=== PATIENT | female | born 1990 | race Caucasian/White ===

== ENCOUNTER 2016-12-31 15:16 | Emergency (ER) | payer OTHER ==
[2016-12-31 15:29] VITALS: TEMP 98.2; BMI 24.2
--- NOTE | 2016-12-31 15:33 | PDOC ---
Rapid Medical Evaluation Chief Complaint: Pain, Acute Time Seen by Provider: 12/31/16 15:24 Medical Evaluation: Allergies Allergy/AdvReac Type Severity Reaction Status Date / Time No Known Allergies Allergy Verified 12/31/16 15:24 Vital Signs Temp Pulse Resp BP Pulse Ox 98.2 F 91 H 19 121/62 97 12/31/16 15:24 12/31/16 15:24 12/31/16 15:24 12/31/16 15:24 12/31/16 15:24 12/31/16 15:31 I have performed a brief in-person evaluation of this patient. The patient presents with a chief complaint of: vaginal bleeding associated with abd cramping x 3 days, h/o unprotected sexual intercourse Pertinent physical exam findings:soft abd, + mild distress I have ordered the following: cbc, cmp, type and screen, ucg, beta-hcg The patient will proceed to the ED for further evaluation.
[2016-12-31 16:00] LABS: BASOPHIL 0.5 % (0-2.0); EOSINOPHIL 1.6 % (0-4.5); MCH 30.9 pg (25.7-33.7); MCHC 34.8 g/dl (32.0-36.0); MEAN CELL VOLUME 88.8 fl (80-96); MEAN PLT VOLUME 8.6 fl (7.5-11.1); NEUTROPHILS 82.2 % (42.8-82.8); PLATELET COUNT 208 K/MM3 (134-434); RDW 12.5 % (11.6-15.6); WHITE BLOOD COUNT 9.3 K/mm3 (4.0-10.0)
[2016-12-31 16:26] LABS: ALBUMIN 3.6 g/dl (3.4-5.0); ANION GAP 9 (8-16); BILIRUBIN,TOTAL 0.4 mg/dL (0.2-1.0); CALCIUM 8.8 mg/dL (8.5-10.1); CO2 25 mmol/L (21-32); CREATININE 0.7 mg/dL (0.55-1.02); GLUCOSE,RANDOM 97 mg/dL (74-106); SGOT/AST 10 U/L (15-37); SGPT/ALT 16 U/L (12-78); TOT PROT 6.7 g/dl (6.4-8.2)
[2016-12-31 16:27] LABS: ALK PHOS 57 U/L (45-117)
--- NOTE | 2016-12-31 16:49 | PDOC ---
History of Present Illness - General History Source: Patient Exam Limitations: No Limitations <Jatinder Stewart - Last Filed: 12/31/16 20:01> - General History Source: Patient, Family, Old Records Exam Limitations: No Limitations - History of Present Illness Initial Comments: 12/31/16 17:07 The patient is a 26-year-old female with past medical history of asthma who presents to the emergency department for 2 days of vaginal bleeding. Patient reports that her last menstrual period was 6 weeks ago and is unsure if she is . She denies ever being . She reports suprapubic cramping but denies nausea, vomiting, diarrhea. Denies dysuria. Does report vaginal bleeding but denies vaginal discharge. Came into the ED for further evaluation. <Gilmer Leyva - Last Filed: 12/31/16 20:03> - General Chief Complaint: Pain, Acute Stated Complaint: ABD PAIN, VAGINAL BLEEDING Time Seen by Provider: 12/31/16 15:24 Past History - Past Medical History Asthma: Yes - Immunization History Immunization Up to Date: Yes - Psycho/Social/Smoking Cessation Hx Anxiety: No Suicidal Ideation: No Smoking History: Never smoked Hx Alcohol Use: No Drug/Substance Use Hx: No Substance Use Type: None <Jatinder Stewart - Last Filed: 12/31/16 20:01> <Gilmer Leyva - Last Filed: 12/31/16 20:03> - Past Medical History Allergies/Adverse Reactions: Allergies Allergy/AdvReac Type Severity Reaction Status Date / Time No Known Allergies Allergy Verified 12/31/16 15:24 Home Medications: Ambulatory Orders NK [No Known Home Medication] 05/19/14 Review of Systems - Review of Systems Able to Perform ROS?: Yes Comments:: 12/31/16 17:07 GENERAL/CONSTITUTIONAL: No fever or chills. No weakness. HEAD, EYES, EARS, NOSE AND THROAT: No change in vision. No ear pain or discharge. No sore throat. CARDIOVASCULAR: No chest pain or shortness of breath. RESPIRATORY: No cough, wheezing, or hemoptysis. GASTROINTESTINAL: No nausea, vomiting, diarrhea or constipation. GENITOURINARY: No dysuria, frequency, or change in urination. VEST BACKER: (+) suprapubic cramping, vaginal bleeding. MUSCULOSKELETAL: No joint or muscle swelling or pain. No neck or back pain. SKIN: No rash NEUROLOGIC: No headache, vertigo, loss of consciousness, or change in strength/ sensation. ENDOCRINE: No increased thirst. No abnormal weight change. HEMATOLOGIC/LYMPHATIC: No anemia, easy bleeding, or history of blood clots. ALLERGIC/IMMUNOLOGIC: No hives or skin allergy. <Gilmer Leyva - Last Filed: 12/31/16 20:03> *Physical Exam - Vital Signs Last Vital Signs Temp Pulse Resp BP Pulse Ox 98.2 F 91 H 19 121/62 97 12/31/16 15:24 12/31/16 15:24 12/31/16 15:24 12/31/16 15:24 12/31/16 15:24 <Jatinder Stewart - Last Filed: 12/31/16 20:01> - Vital Signs Last Vital Signs Temp Pulse Resp BP Pulse Ox 98.2 F 91 H 19 121/62 97 12/31/16 15:24 12/31/16 15:24 12/31/16 15:24 12/31/16 15:24 12/31/16 15:24 - Physical Exam Comments: 12/31/16 17:07 GENERAL: Awake, alert, and fully oriented, in no acute distress HEAD: No signs of trauma EYES: PERRLA, EOMI, sclera anicteric, conjunctiva clear ENT: Auricles normal inspection, hearing grossly normal, nares patent, oropharynx clear without exudates. Moist mucosa NECK: Normal ROM, supple, no lymphadenopathy, JVD, tenderness, or masses LUNGS: Breath sounds equal, clear to auscultation bilaterally. No wheezes, and no crackles HEART: Regular rate and rhythm, normal S1 and S2, no murmurs, rubs or gallops ABDOMEN: Soft, nontender, normoactive bowel sounds. No guarding, no rebound. No masses EXTREMITIES: Normal range of motion, no edema. No clubbing or cyanosis. No cords, erythema, or tenderness VAGINAL: (+) Suprabpubic tenderness to palpation, blood in vaginal vault, no clotting, no CNT, cervical os closed. NEUROLOGICAL: Cranial nerves II through XII grossly intact. Normal speech, normal gait SKIN: Warm, Dry, normal turgor, no rashes or lesions noted. <Gilmer Leyva - Last Filed: 12/31/16 20:03> ED Treatment Course - LABORATORY CBC & Chemistry Diagram: 12/31/16 15:22 12/31/16 15:22 - ADDITIONAL ORDERS Additional order review: 12/31/16 15:22 RBC 4.54 MCV 88.8 MCHC 34.8 RDW 12.5 MPV 8.6 Neutrophils % 82.2 Lymphocytes % 11.1 Monocytes % 4.6 Eosinophils % 1.6 Basophils % 0.5 <Jatinder Stewart - Last Filed: 12/31/16 20:01> - LABORATORY CBC & Chemistry Diagram: 12/31/16 15:22 12/31/16 15:22 - ADDITIONAL ORDERS Additional order review: Laboratory Results 12/31/16 15:22 Sodium 139 Potassium 4.0 Chloride 105 Carbon Dioxide 25 Anion Gap 9 BUN 10 Creatinine 0.7 Creat Clearance w eGFR > 60 Random Glucose 97 Calcium 8.8 Total Bilirubin 0.4 AST 10 L ALT 16 Alkaline Phosphatase 57 Total Protein 6.7 Albumin 3.6 12/31/16 15:22 RBC 4.54 MCV 88.8 MCHC 34.8 RDW 12.5 MPV 8.6 Neutrophils % 82.2 Lymphocytes % 11.1 Monocytes % 4.6 Eosinophils % 1.6 Basophils % 0.5 - RADIOLOGY Radiograph Interpretation: 12/31/16 20:03 EXAM: US/TRANSVAGINAL ULTRASOUND US Lower abdominal pain and vaginal bleed. Pelvis ultrasound, transvesical and transvaginal Discussion: The uterus is anteverted measuring 7.5 x 4.4 cm. Endometrial stripe measures 4.5 mm in thickness at the fundus which is within normal limits. Right ovary measures 4.8 x 3.1 cm with a simple cyst/dominant follicle measuring 2.3 x 1.4 cm and normal vascular flow. Left ovary measures 3.2 x 2.3 cm with a few small simple cysts/follicles the largest measuring 8 mm and with normal vascular flow. There is no free fluid in the cul-de-sac Impression: Normal-appearing uterus. Normal vascular flow in both ovaries without evidence of torsion. Simple cyst/dominant follicle in the right ovary measuring 2.3 x 1.4 cm a. Reported By: Sheila Gallego MD <Gilmer Leyva - Last Filed: 12/31/16 20:03> Medical Decision Making - Medical Decision Making 12/31/16 16:54 A portion of this note was documented by scribe services under my direction. I have reviewed the details of the note, within reason, and agree with the documentation with the following case summary and management plan written by me. Patient treated in the ED. Nursing notes are reviewed and incorporated into the medical decision-making. Vital signs reviewed. Peripheral IV access obtained by the nurse, laboratory studies are drawn and sent, reviewed and interpreted by myself. Vital Signs Temp Pulse Resp BP Pulse Ox 98.2 F 91 H 19 121/62 97 12/31/16 15:24 12/31/16 15:24 12/31/16 15:24 12/31/16 15:24 12/31/16 15:24 26-year-old female with past medical history of asthma presents to the emergency department for 2 days of vaginal bleeding. Patient reports that her last mentrual period 6 weeks ago and is unsure if she is . She denies ever being . She reports suprapubic cramping but denies nausea, vomiting , diarrhea. Denies dysuria. Does report vaginal bleeding but denies vaginal discharge. Came into the ED for further evaluation. We'll need to check for . If she is positive, we'll need an ectopic versus threatened AB workup. We'll obtain labs including a beta hCG and a type and screen. Likely needs a transvaginal ultrasound. Reassess. 12/31/16 19:52 Ultrasound reviewed. Normal-appearing uterus. Normal vascular flow in both ovaries without evidence of torsion. Simple cyst/dominant follicle in the right ovary measuring 2.3 x 1.4 cm. negative. CBC, BMP 12/31/16 15:22 12/31/16 15:22 CMP Sodium 139 mmol/L (136-145) 12/31/16 15:22 Potassium 4.0 mmol/L (3.5-5.1) 12/31/16 15:22 Chloride 105 mmol/L (98-107) 12/31/16 15:22 Carbon Dioxide 25 mmol/L (21-32) 12/31/16 15:22 Anion Gap 9 (8-16) 12/31/16 15:22 BUN 10 mg/dL (7-18) 12/31/16 15:22 Creatinine 0.7 mg/dL (0.55-1.02) 12/31/16 15:22 Creat Clearance w eGFR > 60 (>60) 12/31/16 15:22 Random Glucose 97 mg/dL (74-106) 12/31/16 15: Calcium 8.8 mg/dL (8.5-10.1) 12/31/16 15: Total Bilirubin 0.4 mg/dL (0.2-1.0) 12/31/16 15: AST 10 U/L (15-37) L 12/31/16 15: ALT 16 U/L (12-78) 12/31/16 15: Alkaline Phosphatase 57 U/L (45-117) 12/31/16 15: Total Protein 6.7 g/dl (6.4-8.2) 12/31/16: Albumin 3.6 g/dl (3.4-5.0) 12/31/16 15: Beta HCG, Quant < 1.0 mIU/ml 12/31/16 15: Urine Test Results Urine Color Straw 12/31/16 17: Urine Appearance Clear 12/31/16 17: Urine pH 6.0 (5.0-8.0) 12/31/16 17:22 Ur Specific [place] 1.008 (1.001-1.035) 12/31/16 17: Urine Protein Negative (NEGATIVE) 12/31/16 17:22 Urine Glucose (UA) Negative (NEGATIVE) 12/31/16 17:22 Urine Ketones Negative (NEGATIVE) 12/31/16 17:22 Urine Blood 3+ (NEGATIVE) H 12/31/16 17: Urine Nitrite Negative (NEGATIVE) 12/31/16 17: Urine Bilirubin Negative (NEGATIVE) 12/31/16 17:22 Ur Leukocyte Esterase Negative (NEGATIVE) 12/31/16 17:22 Urine RBC 3 /hpf (0-3) 12/31/16 17:22 Urine WBC 3 /hpf (3-5) 12/31/16 17:22 Ur Epithelial Cells Rare /hpf (FEW) 12/31/16 17:22 Urine Bacteria Rare /hpf (NONE SEEN) 12/31/16 17:22 Urine Mucus Rare 12/31/16 17:22 Results reviewed. She feels better after motrin. It may be her menstrual cycle that was off cycle. It may possibly be dysfunctional uterine bleeding. Will give NSAIDs and have pt follow up with an interlocking and signal mechanic. Return precautions given including worsening vaginal bleed, lightheadedness, feinting. <Jatinder Stewart - Last Filed: 12/31/16 20:01> *DC/Admit/Observation/Transfer - Discharge Dispostion Admit: No <Jatinder Stewart - Last Filed: 12/31/16 20:01> - Attestations Scribe Attestion: 12/31/16 17:07 Documentation prepared by Gilmer Leyva, acting as medical director/head team physician for Jatinder Stewart MD. <Gilmer Leyva - Last Filed: 12/31/16 20:03> Diagnosis at time of Disposition: Vaginal bleeding - Discharge Dispostion Disposition: HOME Condition at time of disposition: Stable - Referrals Referrals: Jostin Liu MD [Staff Physician] - - Patient Instructions Printed Discharge Instructions: DI for Abnormal Uterine Bleeding Additional Instructions: You have been given a copy of your results to you. Please bring this to your doctor. Take 600 mg ibuprofen (motrin) every 6 hours as needed for pain. If you have uncontrollable bleeding or feel like feinting, please return to the ER for further evaluation.
[2016-12-31 18:14] LABS: URINE APPEARANCE CLEAR; URINE BILIRUBIN NEGATIVE (NEGATIVE); URINE COLOR STRAW; URINE GLUCOSE (UA) NEGATIVE (NEGATIVE); URINE KETONE NEGATIVE (NEGATIVE); URINE LEUK ESTERASE NEGATIVE (NEGATIVE); URINE NITRITE NEGATIVE (NEGATIVE); URINE PROTEIN NEGATIVE (NEGATIVE); URINE UROBILINOGEN NEGATIVE E.U./dl (0.2-1.0)
[2016-12-31 18:16] LABS: URINE BLOOD 3+ (NEGATIVE)
[2016-12-31] MEDS ORDERED: IBUPROFEN 600 MG TABLET (FP) PO ONE ×2 (18:34→18:59)
[2016-12-31 19:05] LABS: URINE BACTERIA RARE /hpf (NONE SEEN); URINE MUCUS RARE; URINE RBC 3 /hpf (0-3); URINE WBC 3 /hpf (3-5)
[2016-12-31 20:41] VITALS: BP 122/65; PULSE 85
== END 2016-12-31 20:43 | disposition home or self-care (01) ==
LOC: JER 15:16
DX: N93.8 Other specified abnormal uterine and vaginal bleeding (principal); N83.292 Other ovarian cyst, left side; N83.291 Other ovarian cyst, right side
CPT/HCPCS: 36415; 76830-TC; 80053; 81003; 81015; 84702; 84703; 85025; 86850; 86900; 86901; 87086; 99284-25

== ENCOUNTER 2017-02-15 16:43 | Emergency (ER) | payer OTHER ==
[2017-02-15 16:52] VITALS: BP 129/69; PULSE 84; TEMP 97.9; BMI 23.4
--- NOTE | 2017-02-15 17:47 | PDOC ---
History of Present Illness - General History Source: Patient Exam Limitations: No Limitations - History of Present Illness Initial Comments: 02/15/17 19:23 The patient is a 26 year old female with a significant past medical history of asthma who presents to the ED with suprapubic discomfort and nausea. She denies any fever, chills, vomiting, diarrhea or constipation. LMP - 12/31/16 PSH - breast augmentation <Arin Sequeira - Last Filed: 02/15/17 19:23> <Dora Eddy - Last Filed: 02/17/17 00:33> - General Chief Complaint: Pain Stated Complaint: NAUSEA/VOMITING/ABD PAIN Time Seen by Provider: 02/15/17 17:20 Past History <Arin Sequeira - Last Filed: 02/15/17 19:23> - Past Medical History Asthma: Yes - Immunization History Immunization Up to Date: Yes - Psycho/Social/Smoking Cessation Hx Anxiety: No Suicidal Ideation: No Smoking History: Never smoked Information on smoking cessation initiated: No Hx Alcohol Use: No Drug/Substance Use Hx: No Substance Use Type: None <Dora Eddy - Last Filed: 02/17/17 00:33> - Past Medical History Allergies/Adverse Reactions: Allergies Allergy/AdvReac Type Severity Reaction Status Date / Time No Known Allergies Allergy Verified 02/15/17 16:52 Home Medications: Ambulatory Orders NK [No Known Home Medication] 05/19/14 Review of Systems - Review of Systems Able to Perform ROS?: Yes Comments:: 02/15/17 19:24 CONSTITUTIONAL: Absent: fever, chills, diaphoresis, generalized weakness, malaise, loss of appetite HEENT: Absent: rhinorrhea, nasal congestion, throat pain, throat swelling, difficulty swallowing, mouth swelling, ear pain, eye pain, visual Changes CARDIOVASCULAR: Absent: chest pain, syncope, palpitations, irregular heart rate, lightheadedness , peripheral edema RESPIRATORY: Absent: cough, shortness of breath, dyspnea with exertion, orthopnea, wheezing, stridor, hemoptysis GASTROINTESTINAL: Present: suprapubic discomfort, nausea Absent: abdominal pain, abdominal distension, vomiting, diarrhea, constipation, melena, hematochezia GENITOURINARY: Absent: dysuria, frequency, urgency, hesitancy, hematuria, flank pain, genital pain MUSCULOSKELETAL: Absent: myalgia, arthralgia, joint swelling SKIN: Absent: rash, itching, pallor HEMATOLOGIC/IMMUNOLOGIC: Absent: easy bleeding, easy bruising, lymphadenopathy, frequent infections ENDOCRINE: Absent: unexplained weight gain, unexplained weight loss, heat intolerance, cold intolerance NEUROLOGIC: Absent: headache, focal weakness or paresthesias, dizziness, unsteady gait, seizure, mental status changes, bladder or bowel incontinence PSYCHIATRIC: Absent: anxiety, depression, suicidal or homicidal ideation, hallucinations. <Arin Sequeira - Last Filed: 02/15/17 19:23> *Physical Exam - Vital Signs Last Vital Signs Temp Pulse Resp BP Pulse Ox 97.9 F 84 18 129/69 98 02/15/17 16:50 02/15/17 16:50 02/15/17 16:50 02/15/17 16:50 02/15/17 16:50 - Physical Exam Comments: 02/15/17 19:24 GENERAL: Well developed, well nourished. Awake and alert. No acute distress. HEENT: Normocephalic, atraumatic. PERRLA, EOMI. No conjunctival pallor. Sclera are non- icteric. Moist mucous membranes. Oropharynx is clear. NECK: Supple. Full ROM. No JVD. Carotid pulses 2+ and symmetric, without bruits. No thyromegaly. No lymphadenopathy. CARDIOVASCULAR: Regular rate and rhythm. No murmurs, rubs, or gallops. Distal pulses are 2+ and symmetric. PULMONARY: No evidence of respiratory distress. Lungs clear to auscultation bilaterally. No wheezing, rales or rhonchi. ABDOMINAL: Soft. Non-tender. Non-distended. No rebound or guarding. No organomegaly. Normoactive bowel sounds. MUSCULOSKELETAL Normal range of motion at all joints. No bony deformities or tenderness. No CVA tenderness. EXTREMITIES: No cyanosis. No clubbing. No edema. No calf tenderness. SKIN: Warm and dry. Normal capillary refill. No rashes. No jaundice. NEUROLOGICAL: Alert, awake, appropriate. Cranial nerves 2-12 intact. No deficits to light touch and temperature in face, upper extremities and lower extremities. No motor deficits in the in face, upper extremities and lower extremities. Normoreflexic in the upper and lower extremities. Normal speech. Toes are down-going bilaterally. PSYCHIATRIC: Cooperative. Good eye contact. Appropriate mood and affect. <Arin Sequeira - Last Filed: 02/15/17 19:23> - Vital Signs Last Vital Signs Temp Pulse Resp BP Pulse Ox 97.9 F 84 18 129/69 98 02/15/17 16:50 02/15/17 16:50 02/15/17 16:50 02/15/17 16:50 02/15/17 16:50 <Dora Eddy - Last Filed: 02/17/17 00:33> ED Treatment Course - ADDITIONAL ORDERS Additional order review: Laboratory Results 02/15/17 02/15/17 18:10 18:10 Urine Color [place] Urine Appearance Clear Urine pH 7.0 Ur Specific [place] 1.009 Urine Protein Negative Urine Glucose (UA) Negative Urine Ketones Negative Urine Blood Negative Urine Nitrite Negative Urine Bilirubin Negative Urine Urobilinogen Negative Ur Leukocyte Esterase Negative Urine HCG, Qual Positive <Arin Sequeira - Last Filed: 02/15/17 19:23> Medical Decision Making - Medical Decision Making 02/15/17 18:12 Primary female presents because of suprapubic discomfort and nausea. Her last menstrual cycle was December 31. Past medical history significant for asthma. Past surgical history breast augmentation -abdominal exam -there is no rebound,no guarding 02/15/17 18:51 ultrasound reveals intrauterine 6 weeks 3 days,FHT 128. Pt to f/u with her adjuster leader 02/17/17 00:32 <Dora Eddy - Last Filed: 02/17/17 00:33> *DC/Admit/Observation/Transfer - Attestations Scribe Attestion: 02/15/17 19:25 Documentation prepared by LAURITA Love, acting as medical records coder for Dora Eddy MD. <Arin Sequeira - Last Filed: 02/15/17 19:23> <Dora Eddy - Last Filed: 02/17/17 00:33> Diagnosis at time of Disposition: Qualifiers: Weeks of gestation: less than 8 weeks Qualified Code(s): Z3A.01 - Less than 8 weeks gestation of - Discharge Dispostion Disposition: HOME Condition at time of disposition: Stable - Patient Instructions Printed Discharge Instructions: DI for -- Discomforts and Remedies Additional Instructions: please follow up with your adjuster leader for further care
[2017-02-15 18:24] LABS: URINE APPEARANCE CLEAR; URINE BILIRUBIN NEGATIVE (NEGATIVE); URINE BLOOD NEGATIVE (NEGATIVE); URINE COLOR LTYELLOW; URINE GLUCOSE (UA) NEGATIVE (NEGATIVE); URINE KETONE NEGATIVE (NEGATIVE); URINE LEUK ESTERASE NEGATIVE (NEGATIVE); URINE NITRITE NEGATIVE (NEGATIVE); URINE PROTEIN NEGATIVE (NEGATIVE); URINE UROBILINOGEN NEGATIVE E.U./dl (0.2-1.0)
== END 2017-02-15 22:19 | disposition home or self-care (01) ==
LOC: JER 16:43
DX: O26.891 Other specified pregnancy related conditions, first trimester (principal); Z3A.01 Less than 8 weeks gestation of pregnancy
CPT/HCPCS: 36415; 76801-TC; 81003; 84702; 84703; 99282-25